=== PATIENT | male | born 1955 | race Caucasian/White ===

== ENCOUNTER 2025-04-14 12:46 | Outpatient (AMB) | payer MEDICARE, SELFPAY ==
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
[2025-04-14 13:02] VITALS: BMI 25.5
== END 2025-04-14 13:41 | disposition home or self-care (01) ==
LOC: HO.HNS 12:47
PROVIDERS: PCP Internal Medicine; Referring Provider Internal Medicine; Visit Provider Physician Assistant
DX: M51.26 Other intervertebral disc displacement, lumbar region (principal)
CPT/HCPCS: 99204

== ENCOUNTER → 2025-04-14 12:46 | Outpatient (BNVA) | payer MEDICARE, SELFPAY | PROVIDERS: PCP Internal Medicine; Referring Provider Internal Medicine; Visit Provider Physician Assistant | DX: M51.26 Other intervertebral disc displacement, lumbar region (principal) | CPT/HCPCS: 99202 ==